=== PATIENT | male | born 1985 | race Caucasian/White ===

== ENCOUNTER 2016-04-25 23:35 | Observation (INO) | payer BC, SELFPAY ==
[~2016-04-25] VITALS: Ht 172.7 cm; Wt 94.9 kg
[2016-04-26 00:25] LABS: BASO # 0.1 K/mm3 (0.0-0.2); BASO % 1.3 % (0.0-1.0); EOS # 0.2 K/mm3 (0.0-0.50); EOS % 1.8 % (0.0-3.0); LARGE UNSTAINED CELL # 0.1 K/mm3 (0.0-0.4); LYMPH # 2.5 K/mm3 (1.5-4.5); LYMPH % 23.5 % (24.0-44.0); MEAN CORPUSCULAR HEMOGLOBIN 30.6 pg (27.0-33.0); MEAN CORPUSCULAR HGB CONC 33.9 g/dl (32.0-36.5); MEAN CORPUSCULAR VOLUME 90.3 fl (80.0-96.0); MONO # 0.5 K/mm3 (0.0-0.8); MONO % 4.4 % (0.0-5.0); NEUTROPHILS # 6.9 K/mm3 (1.8-7.7); PLATELET COUNT, AUTOMATED 196 k/mm3 (150-450); RED CELL DISTRIBUTION WIDTH 13.7 % (11.5-14.5); WHITE BLOOD COUNT 10.2 K/mm3 (4.0-10.0)
[2016-04-26 00:31] LABS: INR 0.93
[2016-04-26 00:51] LABS: ALBUMIN 3.7 GM/DL (3.2-5.2); ALBUMIN/GLOBULIN RATIO 1.09 (1.00-1.93); ALKALINE PHOSPHATASE 95 U/L (45-117); ALT/SGPT 37 U/L (12-78); AMYLASE 64 U/L (25-115); ANION GAP 10 MEQ/L (8-16); AST/SGOT 22 U/L (15-37); BILIRUBIN,DIRECT < 0.1 MG/DL (0.0-0.2); BILIRUBIN,TOTAL 0.2 MG/DL (0.2-1.0); BLOOD UREA NITROGEN 11 MG/DL (7-18); CALCIUM LEVEL 8.8 MG/DL (8.5-10.1); CARBON DIOXIDE LEVEL 27 MEQ/L (21-32); CHLORIDE LEVEL 104 MEQ/L (98-107); CREATININE FOR GFR 1.11 MG/DL (0.70-1.30); GLOMERULAR FILTRATION RATE > 60.0 (>60); GLUCOSE, FASTING 100 MG/DL (70-105); POTASSIUM SERUM 3.8 MEQ/L (3.5-5.1); SODIUM LEVEL 141 MEQ/L (136-145); TOTAL PROTEIN 7.1 GM/DL (6.4-8.2)
[2016-04-26] MEDS ORDERED: ISOVUE-370 76% 100ML VIAL (Q9967) As Ordered ONE (02:32)
--- NOTE | 2016-04-26 03:30 | REPUSA ---
CLINICAL HISTORY: Abdominal pain. TECHNIQUE: Multiple axial, sagittal and coronal CT images were obtained through the abdomen and pelvi s after administration of intravenous contrast material. COMMENTS: The liver is of uniform attenuation without mass or defect. There is no intra or extrahepatic biliary ductal dilatation. The spleen is normal. The gallbladder is surgically absent. The pancreas is of no rmal contour and attenuation characteristics. There is no evidence of adrenal mass. Both kidneys demonstrate prompt and equal nephrograms. The kidneys are normal in size, shape and conf iguration. There is no evidence of renal or ureteral mass. No renal or ureteral calculi are identifie d. There is no hydroureter or hydronephrosis. No evidence for appendicitis. There is no bowel wall thickening. No evidence for small or large laney l obstruction. There is no evidence of abdominal ascites or lymphadenopathy. Small sliding hiatal her janae. There is no evidence of intrinsic or extrinsic bladder mass. There is no pelvic ascites or lymphadeno madelin. Sigmoid diverticulosis. Thickening of the sigmoid colon. Images of the lung bases show no evidence of pleural or parenchymal mass. There are no pleural effusi ons. The bony structures are free of lytic or blastic lesions. Multilevel degenerative changes are seen in volving the thoracolumbar spine. Scattered calcifications are seen involving the aorta and major bran ches compatible with atherosclerosis. IMPRESSION: Thickened sigmoid, underdistention versus mild colitis. Prior cholecystectomy. Mild thickening of the bladder. Small sliding hiatal hernia. Thank you for your kind referral of this patient.
--- NOTE | 2016-04-26 04:24 | EDDOCDS ---
Nurse's Notes [facility] Name: Andrea Westfall Age: 31 yrs Sex: Male : 1985 Arrival Date: 04/25/2016 Time: 23:35 Bed 5 Private MD: CARRI NAQVI Diagnosis: Gastrointestinal hemorrhage, unspecified Presentation: 04/25 23:40 Presenting complaint: Patient states: "Chunks of blood coming out when I go to [place] [facility] [place]." Has been checked for same at [facility]. Took antibiotics but has not improved. Mucus and bloody BMs today. Adult Sepsis Screening: The patient does not have new or worsening altered mentation. Patient's respiratory rate is less than 22. Systolic blood pressure is greater than 100. Patient has a qSOFA score of 0- Negative Sepsis Screen. Suicide/Homicide risk assessment- the patient denies having any suicidal and/or homicidal ideations and does not present with any other emotional, behavioral or mental health complaints. Status: Patient is not a member service representative or dependent. Transition of care: patient was not received from another setting of care. 23:40 Acuity: SOL Level 3 [facility] 23:40 Method Of Arrival: [facility]in[facility] Triage Assessment: 23:44 General: Appears in no apparent distress, comfortable, Behavior is appropriate for age, kmg1 cooperative. Pain: Location: umbilical area and right lower quadrant Pain currently is 3 out of 10 on a pain scale. Quality of pain is described as burning, sharp. Pt Declines HIV testing. GI: Reports bloody stools lower abdominal pain, vomiting. Historical: - Allergies: No known drug Allergies; - Home Meds: 1. none - PMHx: polyps; - PSHx: Cholecystectomy; Colonoscopy; Endoscopy, Upper; - Social history: Smoking status: Patient uses tobacco products, light tobacco smoker. No barriers to communication noted, The patient speaks fluent Korean, Speaks appropriately for age. - Family history: Not pertinent. - : The pt / caregiver states he / she is not on anticoagulants. Home medication list is obtained from the patient. - Exposure Risk Screening:: None identified. Screenin/16 00:14 Screening information is obtained from the patient. Fall risk: No risks identified. af2 Assistance ADL's: requires no assistance with activities of daily living. Abuse/DV Screen: The patient / caregiver reports he/she is: not in a situation that causes fear, pain or injury. Nutritional screening: No deficits noted. Advance Directives: Currently, there is no health care proxy. home support is adequate. Assessment: 00:15 General: Appears in no apparent distress, comfortable, Behavior is appropriate for age, af2 cooperative. Neurological: Level of Consciousness is awake, alert, obeys commands, Oriented to person, place, time. Cardiovascular: Heart tones S1 S2 present. Respiratory: Airway is patent Respiratory effort is even, unlabored, Breath sounds are clear bilaterally. GI: Abdomen is obese, Bowel sounds present X 4 quads. Reports bloating, bloody stools lower abdominal pain, upper abd pain. 01:40 General: Appears in no apparent distress, comfortable, Behavior is appropriate for age, af2 cooperative. Neurological: Level of Consciousness is awake, alert, obeys commands, Oriented to person, place, time. Respiratory: Airway is patent Respiratory effort is even, unlabored. Derm: Skin is normal. 02:52 General: Appears in no apparent distress, Behavior is cooperative, pt taken down to CT, af2 tolerated procedure well. piv patent.. 04:16 General: Appears in no apparent distress, comfortable, Behavior is appropriate for age, af2 cooperative. Neurological: Level of Consciousness is awake, alert, obeys commands, Oriented to person, place, time. Cardiovascular:. Respiratory: Airway is patent Respiratory effort is even, unlabored. Derm: Skin is pink, warm & dry. Vital Signs: 04/25 23:37 BP 155 / 100; Pulse 78; Resp 18 S; Temp 97.7(O); Pulse Ox 100% on R/A; Weight 88.45 kg dd6 (R); Height 5 ft. 8 in. (172.72 cm) (R); Pain 3/10; 04/26 00:08 BP 140 / 99 Supine (auto/); Pulse 79; af2 00:08 BP 147 / 94 Sitting (auto/); Pulse 74; af2 00:09 Pulse Ox 98% ; af2 00:09 BP 136 / 92 Standing (auto/); Pulse 71; af2 04:19 BP 137 / 89; Pulse 57; Resp 18; Temp 97.8(TE); Pulse Ox 98% on R/A; Pain 3/10; arsen 04/25 23:37 Body Mass Index 29.65 (88.45 kg, 172.72 cm) dd6 Vitals: 04/25 23:37 Log In Time: April 25, 2016 at 23:35. dd6 ED Course: 23:36 Patient visited by Charlie Lamar PCA. dd6 23:36 Patient moved to Waiting dd6 23:37 CARRI NAQVI is Private Physician. dd6 23:37 Patient moved to Pre RCE dd6 23:42 Triage Initiated kmg1 23:54 Isabela Porter RN is Primary Nurse. kmg1 23:54 Tolu Colin DO is Attending Physician. cs11 23:54 Patient visited by Tolu Colin DO. cs11 23:54 Patient moved to [facility] 04/26 00:14 Lipase Sent. af2 00:14 Amylase Sent. af2 00:14 Liver Profile Sent. af2 00:14 Pt & Aptt Sent. af2 00:14 MED Profile Sent. af2 00:14 CBC with Diff Sent. af2 00:15 The patient / caregiver is instructed regarding the plan of care and ED course. Patient af2 has correct armband on for positive identification. 00:15 Inserted saline lock: 20 gauge in right antecubital area and blood collected. The af2 patient tolerated the procedure well. 00:16 Patient visited by Isabela Porter RN. af2 00:50 Patient visited by Isabela Porter RN. af2 01:14 Patient name changed from Andrea\\S\\\\S\\Queary\\S\\ to Andrea\\S\\Damián\\S\\Queary. EDMS 01:16 [facility] Payment Agreement was scanned into [employer] and attached to record. slh 01:26 Patient visited by Isabela Porter RN. af2 01:28 Patient visited by Isabela Porter RN. af2 01:41 Patient visited by Isabela Porter RN. af2 02:12 Patient visited by Isabela Porter RN. af2 02:12 Patient visited by Isabela Porter RN. af2 02:53 Patient visited by Isabela Porter RN. af2 03:29 Patient visited by Isabela Porter RN. af2 03:29 Patient visited by Isabela Porter RN. af2 03:40 Meg Esteban is Hospitalizing Provider. cs11 03:49 CT ABD & PELVIS: IV Contrast Only Returned. EDMS 04:16 No procedures done that require assistance. af2 04:17 Patient visited by Isabela Porter RN. af2 04:20 Patient visited by Deysi Goddard PCA. arsen Order Results: Lab Order: CBC with Diff; SPEC'M 04/26/16 00:12 Test: WHITE BLOOD COUNT; Value: 10.2; Range: 4.0-10.0; Abnormal: Above high normal; Units: K/mm3; Status: F Test: RED BLOOD COUNT; Value: 4.95; Range: 4.30-6.10; Units: M/mm3; Status: F Test: HEMOGLOBIN; Value: 15.2; Range: 14.0-18.0; Units: g/dl; Status: F Test: HEMATOCRIT; Value: 44.7; Range: 42.0-52.0; Units: %; Status: F Test: MEAN CORPUSCULAR VOLUME; Value: 90.3; Range: 80.0-96.0; Units: fl; Status: F Test: MEAN CORPUSCULAR HEMOGLOBIN; Value: 30.6; Range: 27.0-33.0; Units: pg; Status: F Test: MEAN CORPUSCULAR HGB CONC; Value: 33.9; Range: 32.0-36.5; Units: g/dl; Status: F Test: RED CELL DISTRIBUTION WIDTH; Value: 13.7; Range: 11.5-14.5; Units: %; Status: F Test: PLATELET COUNT, AUTOMATED; Value: 196; Range: 150-450; Units: k/mm3; Status: F Test: NEUTROPHILS %; Value: 68.0; Range: 36.0-66.0; Abnormal: Above high normal; Units: %; Status: F Test: LYMPH %; Value: 23.5; Range: 24.0-44.0; Abnormal: Below low normal; Units: %; Status: F Test: MONO %; Value: 4.4; Range: 0.0-5.0; Units: %; Status: F Test: EOS %; Value: 1.8; Range: 0.0-3.0; Units: %; Status: F Test: BASO %; Value: 1.3; Range: 0.0-1.0; Abnormal: Above high normal; Units: %; Status: F Test: LARGE UNSTAINED CELL %; Value: 1.0; Range: 0.0-4.0; Units: %; Status: F Test: NEUTROPHILS #; Value: 6.9; Range: 1.8-7.7; Units: K/mm3; Status: F Test: LYMPH #; Value: 2.5; Range: 1.5-4.5; Units: K/mm3; Status: F Test: MONO #; Value: 0.5; Range: 0.0-0.8; Units: K/mm3; Status: F Test: EOS #; Value: 0.2; Range: 0.0-0.50; Units: K/mm3; Status: F Test: BASO #; Value: 0.1; Range: 0.0-0.2; Units: K/mm3; Status: F Test: LARGE UNSTAINED CELL #; Value: 0.1; Range: 0.0-0.4; Units: K/mm3; Status: F Lab Order: MED Profile; SPEC'M 04/26/16 00:12 Test: GLUCOSE, FASTING; Value: 100; Range: 70-105; Units: MG/DL; Status: F Test: BLOOD UREA NITROGEN; Value: 11; Range: 7-18; Units: MG/DL; Status: F Test: CREATININE FOR GFR; Value: 1.11; Range: 0.70-1.30; Units: MG/DL; Status: F Test: GLOMERULAR FILTRATION RATE; Value: > 60.0; Range: >60; Status: F Test: SODIUM LEVEL; Value: 141; Range: 136-145; Units: MEQ/L; Status: F Test: POTASSIUM SERUM; Value: 3.8; Range: 3.5-5.1; Units: MEQ/L; Status: F Test: CHLORIDE LEVEL; Value: 104; Range: 98-107; Units: MEQ/L; Status: F Test: CARBON DIOXIDE LEVEL; Value: 27; Range: 21-32; Units: MEQ/L; Status: F Test: ANION GAP; Value: 10; Range: 8-16; Units: MEQ/L; Status: F Test: CALCIUM LEVEL; Value: 8.8; Range: 8.5-10.1; Units: MG/DL; Status: F Test Note: ; Units are mL/min/1.73 m2 Chronic Kidney Disease Staging per NKF: Stage I & II GFR >=60 Normal to Mildly Decreased Stage III GFR 30-59 Moderately Decreased Stage IV GFR 15-29 Severely Decreased Stage V GFR <15 Very Little GFR Left ESRD GFR <15 on VP [employer] Lab Order: Pt & Aptt; SPEC'M 04/26/16 00:12 Test: PROTHROMBIN TIME; Value: 12.6; Range: 12.3-14.5; Units: SECONDS; Status: F Test: INR; Value: 0.93; Status: F Test: PARTIAL THROMBOPLASTIN TIME; Value: 30.3; Range: 26.6-37.1; Units: SECONDS; Status: F Test Note: ; THERAPUTIC HUMAN INR VALUES INDICATIONS NORMAL RANGES PROPHYLAXIS/TREATMENT OF: VENOUS THROMBOSIS 2.0-3.0 PULMONARY EMBOLISM 2.0-3.0 PREVENTION OF SYSTEMIC EMBOLISM FROM: TISSUE HEART VALVES 2.0-3.0 ACUTE MYOCARDIAL INFARCTION 2.0-3.0 VALVULAR HEART DISEASE 2.0-3.0 ATRIAL FIBRILLATION 2.0-3.0 MECHANICAL VALVES(HIGH RISK) 2.5-3.5 RECURRENT MYOCARDIAL INFARCTION 2.5-3.5 Lab Order: Liver Profile; SPEC'04/26/16 00:12 Test: AST/SGOT; Value: 22; Range: 15-37; Units: U/L; Status: F Test: ALT/SGPT; Value: 37; Range: 12-78; Units: U/L; Status: F Test: ALKALINE PHOSPHATASE; Value: 95; Range: 45-117; Units: U/L; Status: F Test: BILIRUBIN,TOTAL; Value: 0.2; Range: 0.2-1.0; Units: MG/DL; Status: F Test: BILIRUBIN,DIRECT; Value: < 0.1; Range: 0.0-0.2; Units: MG/DL; Status: F Test: TOTAL PROTEIN; Value: 7.1; Range: 6.4-8.2; Units: GM/DL; Status: F Test: ALBUMIN; Value: 3.7; Range: 3.2-5.2; Units: GM/DL; Status: F Test: ALBUMIN/GLOBULIN RATIO; Value: 1.09; Range: 1.00-1.93; Status: F Lab Order: Amylase; SPEC'M 04/26/16 00:12 Test: AMYLASE; Value: 64; Range: 25-115; Units: U/L; Status: F Lab Order: Lipase; SPEC'M 04/26/16 00:12 Test: LIPASE; Value: 388; Range: 73-393; Units: U/L; Status: F Radiology Order: CT ABD & PELVIS: IV Contrast Only Test: CT ABD & PELVIS: IV Contrast Only REASON FOR EXAMINATION: Abdomen Pain; ; CLINICAL HISTORY: Abdominal pain.; TECHNIQUE: Multiple axial, sagittal and coronal CT images were obtained through the abdomen and pelvi; s after administration of intravenous contrast material.; COMMENTS:; The liver is of uniform attenuation without mass or defect. There is no intra or extrahepatic biliary; ductal dilatation. The spleen is normal. The gallbladder is surgically absent. The pancreas is of no; rmal contour and attenuation characteristics. There is no evidence of adrenal mass.; Both kidneys demonstrate prompt and equal nephrograms. The kidneys are normal in size, shape and conf; iguration. There is no evidence of renal or ureteral mass. No renal or ureteral calculi are identifie; d. There is no hydroureter or hydronephrosis.; No evidence for appendicitis. There is no bowel wall thickening. No evidence for small or large laney; l obstruction. There is no evidence of abdominal ascites or lymphadenopathy. Small sliding hiatal her; janae.; There is no evidence of intrinsic or extrinsic bladder mass. There is no pelvic ascites or lymphadeno; madelin. Sigmoid diverticulosis. Thickening of the sigmoid colon.; Images of the lung bases show no evidence of pleural or parenchymal mass. There are no pleural effusi; ons.; The bony structures are free of lytic or blastic lesions. Multilevel degenerative changes are seen in; volving the thoracolumbar spine. Scattered calcifications are seen involving the aorta and major bran; ches compatible with atherosclerosis.; IMPRESSION:; Thickened sigmoid, underdistention versus mild colitis.; Prior cholecystectomy.; Mild thickening of the bladder.; Small sliding hiatal hernia.; Thank you for your kind referral of this patient.; ; Outcome: 03:40 Decision to Hospitalize by Provider. cs11 04:16 Discharge Assessment: Patient awake, alert and oriented x 3. No cognitive and/or af2 functional deficits noted. Patient verbalized understanding of disposition instructions. patient administered narcotics - no. The following High Risk Discharge criteria are identified: None. Admitted to Med/Surg accompanied by tech, via wheelchair, with chart. Condition: stable. CT Study completed. Property :Personal belongings accompany Pt. 04:23 Patient left the ED. af2 Signatures: Dispatcher [employer] EDFrancisca Epps, RN RN kmg1 Charlie Lamar, PROFESSOR OF LAW PROFESSOR OF LAW dd6 Deysi Goddard, PROFESSOR OF LAW PROFESSOR OF LAW arsen Tolu Colin, DO cs11 Daria Guido Amber,RN RN af2 MTDD
--- NOTE | 2016-04-26 04:24 | EDDOCDS ---
Physician Documentation [facility] Name: Andrea Westfall Age: 31 yrs Sex: Male : 1985 Arrival Date: 04/25/2016 Time: 23:35 Bed 5 Private MD: CARRI NAQVI Disposition: 04/26/16 03:40 Hospitalization ordered by Meg Esteban for Inpatient Admission. Preliminary diagnosis is Gastrointestinal hemorrhage, unspecified. - Bed requested for 5 Salazar. - Status is Inpatient Admission. af2 - Condition is Stable. - Problem is an ongoing problem. - Symptoms are unchanged. Historical: - Allergies: No known drug Allergies; - Home Meds: 1. none - PMHx: polyps; - PSHx: Cholecystectomy; Colonoscopy; Endoscopy, Upper; - Social history: Smoking status: Patient uses tobacco products, light tobacco smoker. No barriers to communication noted, The patient speaks fluent Maltese, Speaks appropriately for age. - Family history: Not pertinent. - : The pt / caregiver states he / she is not on anticoagulants. Home medication list is obtained from the patient. - Exposure Risk Screening:: None identified. Vital Signs: 04/25 23:37 BP 155 / 100; Pulse 78; Resp 18 S; Temp 97.7(O); Pulse Ox 100% on R/A; Weight 88.45 kg dd6 / 195 lbs (R); Height 5 ft. 8 in. (172.72 cm) (R); Pain 3/10; 04/26 00:08 BP 140 / 99 Supine (auto/); Pulse 79; af2 00:08 BP 147 / 94 Sitting (auto/); Pulse 74; af2 00:09 Pulse Ox 98% ; af2 00:09 BP 136 / 92 Standing (auto/); Pulse 71; af2 04:19 BP 137 / 89; Pulse 57; Resp 18; Temp 97.8(TE); Pulse Ox 98% on R/A; Pain 3/10; arsen 04/25 23:37 Body Mass Index 29.65 (88.45 kg, 172.72 cm) dd6 MDM: 04/25 23:56 Orthostatic VS ordered. cs11 23:56 CBC with Diff Ordered. EDMS 23:56 MED Profile Ordered. EDMS 23:56 Pt & Aptt Ordered. EDMS 23:56 Liver Profile Ordered. EDMS 23:56 Amylase Ordered. EDMS 23:56 Lipase Ordered. EDMS 04/26 01:05 Financial registration complete. [facility] 01:[address] [facility] 01:16 [facility] Payment Agreement was scanned into [employer] and attached to record. [facility] 02:05 CT ABD & PELVIS: IV Contrast Only Ordered. EDMS 03:36 CBC with Diff Reviewed. cs11 03:36 MED Profile Reviewed. cs11 03:36 Pt & Aptt Reviewed. cs11 03:36 Liver Profile Reviewed. cs11 03:36 Amylase Reviewed. cs11 03:36 Lipase Reviewed. cs11 03:36 BED REQUEST+ADM ordered. EDMS 03:44 Admission / Observation Status ordered. EDMS 03:44 OTHER CUSTOM DIETS ordered. EDMS 03:44 HEMOGLOBIN & HEMATOCRIT Ordered. EDMS 03:44 HEMOGLOBIN & HEMATOCRIT Ordered. EDMS 03:44 HEMOGLOBIN & HEMATOCRIT Ordered. EDMS Signatures: Dispatcher [employer] EDMS Francisca Zamarripa RN RN kmg1 Radha , Brittany RN RN Tolu Sotelo, DO [facility] Daria Guido [facility] Isabela PorterRN RN af2 The chart was reviewed and I authenticate all verbal orders and agree with the evaluation and treatment provided.Attachments: 01:16 [facility] Payment Agreement [facility] MTDD
[2016-04-26 04:30] VITALS: BP 140/94
[2016-04-26] MEDS: PANTOPRAZOLE 40MG INJ (PROTONIX) (C9113) IV SCH ×2 (05:26→17:34)
[2016-04-26] MEDS: METOCLOPRAMIDE INJ 10MG/2ML VIAL (J2765) IV SCH ×3 (05:26→20:07)
[2016-04-26 06:00] VITALS: BP 134/90
--- NOTE | 2016-04-26 07:32 | IPNPDOC ---
Assessment/Plan Date Seen The patient was seen on 04/26/16. Problems Problems: (1) Abdominal pain Status: Acute Discussed With: Patient Problem Specific Plan: Consult Specialist, Monitor Clinically Problem Text: CT abd/pelvis unrevealing. Clear liquids for now. (2) Rectal bleeding Status: Acute Response to Treatment: Progressing Discussed With: Patient Problem Specific Plan: Consult Specialist, Monitor Clinically, Repeat Labs Problem Text: H/H stable. Some concern for IBD, lab work pending. Has had colonoscopies in the past, most recent 1 year ago. As per patient all studies have been unrevealing. GI consultation pending. Plan / VTE VTE Prophylaxis Ordered?: Yes Plan Diet: Continue Current Activity: Continue Current Diagnostics: Other Diagnostics Anticipated Discharge: Home Subjective Review of Systems CC/HPI The patient is a 31-year-old male admitted with a reason for visit of Rectal Bleeding. General: Denies: Chills, Fatigue, Malaise, Night Sweats, Normal Appetite, Other Symptoms, ROS Unobtainable Constitutional: Denies: Chills, Fatigue, Fever, Lethargy, Malaise, Night Sweats , Other, Weakness, Weight Loss Eyes: Denies: Conjunctivae inflammation, Eyelid inflammation, Other, Pain, Redness, Vision change ENT: Denies: Dysphagia, Ear Pain, Epistaxis, Head Aches, Other Symptoms, Post Nasal Drip, Sinus Congestion, Sore Throat Skin: Denies: Breakdown, Bruising, Dry, Itching, Jaundice, Lesions, Nail Changes, Other, Rash Pulmonary: Denies: Cough, Dyspnea, Other Symptoms, Pleuritic Chest Pain Cardiovascular: Denies: Chest Pain, Edema, Lt Headedness, Orthopnea, Other Symptoms, Palpitations, Paroxysmal Noc. Dyspnea Gastrointestinal: Reports: Abdominal Pain, Hematochezia, Nausea, Vomiting Genitourinary: Denies: Dysuria, Frequency, Hematuria, Incontinence, Other Symptoms, Retention Objective Physical Examination General Exam: Positive: Alert, Cooperative, No Acute Distress Eye Exam: Positive: Conjunctiva & lids normal, EOMI, Negative: Sclera icteric ENT Exam: Positive: Atraumatic, Mucous membr. moist/pink Neck Exam: Positive: Supple Chest Exam: Positive: Clear to auscultation, Normal air movement Heart Exam: Positive: Rate Normal, Regular Rhythm Abdomen Exam: Positive: Normal bowel sounds, Soft, Tenderness Extremity Exam: Negative: Edema Skin Exam: Negative: Rash Psych Exam: Positive: Mental status NL, Mood NL, Oriented x 3 Vital Signs/I&O Vital Signs Date Time Temp Pulse Resp B/P Pulse Ox O2 Delivery O2 Flow Rate FiO2 04/26/16 06:00 96.7 60 18 134/90 95 Room Air I&O- Last 24 Hours up to 6 AM 04/26/16 06:00 Intake Total 120 ml Output Total 0 ml Balance 120 ml Laboratory Data Labs 24H Laboratory Tests 2 04/26/16 00:12: Activated Partial Thromboplast Time 30.3, Aspartate Amino Transf (AST/SGOT) 22, Alanine Aminotransferase (ALT/SGPT) 37, Alkaline Phosphatase 95, Total Bilirubin 0.2, Direct Bilirubin < 0.1, Albumin 3.7, Albumin/Globulin Ratio 1.09 , Amylase Level 64, Anion Gap 10, White Blood Count 10.2H, Red Blood Count 4.95 , Hemoglobin 15.2, Hematocrit 44.7, Mean Corpuscular Volume 90.3, Mean Corpuscular Hemoglobin 30.6, Mean Corpuscular Hemoglobin Concent 33.9, Red Cell Distribution Width 13.7, Platelet Count 196, Neutrophils (%) (Auto) 68.0H, Lymphocytes (%) (Auto) 23.5L, Monocytes (%) (Auto) 4.4, Eosinophils (%) (Auto) 1.8, Basophils (%) (Auto) 1.3H, Neutrophils # (Auto) 6.9, Lymphocytes # (Auto) 2.5, Monocytes # (Auto) 0.5, Eosinophils # (Auto) 0.2, Basophils # (Auto) 0.1, Calcium Level 8.8, Glomerular Filtration Rate > 60.0, Large Unclassified Cells # 0.1, Large Unclassified Cells % 1.0, Lipase 388, Prothromb Time International Ratio 0.93, Prothrombin Time 12.6, Total Protein 7.1 04/26/16 06:00: CBC/BMP Laboratory Tests 04/26/16 00:12 Red Blood Count 4.95, Mean Corpuscular Volume 90.3, Mean Corpuscular Hemoglobin 30.6, Mean Corpuscular Hemoglobin Concent 33.9, Red Cell Distribution Width 13.7 , Neutrophils (%) (Auto) 68.0 H, Lymphocytes (%) (Auto) 23.5 L, Monocytes (%) ( Auto) 4.4, Eosinophils (%) (Auto) 1.8, Basophils (%) (Auto) 1.3 H, Neutrophils # (Auto) 6.9, Lymphocytes # (Auto) 2.5, Monocytes # (Auto) 0.5, Eosinophils # ( Auto) 0.2, Basophils # (Auto) 0.1 04/26/16 06:00 BING ALFRED MD Apr 26, 2016 07:32
[2016-04-26] MEDS ORDERED: PANTOPRAZOLE 40MG INJ (PROTONIX) (C9113) IV SCH (08:00)
[2016-04-26] MEDS: NICOTINE 14 MG/24 HR TRANSDERMAL TD SCH (13:37)
[2016-04-26 14:00] VITALS: BP 132/80
[2016-04-26] MEDS ORDERED: GOLYTELY SOLN 4000 ML BTL PO ONE (16:00)
--- NOTE | 2016-04-26 18:58 | HPE ---
DATE OF ADMISSION: 04/26/2016 PRIMARY CARE PROVIDER: None. CHIEF COMPLAINT: Bleeding per rectum. The patient stated that chunks of blood are coming out when I go to the bathroom. PAST MEDICAL HISTORY: Recurrent rectal bleeds for the past five years. 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 The patient has undergone about five colonoscopies which revealed some polyps. He has undergone also one endoscopy which did not reveal any abnormalities. All the tests were done in [place] where he used to work. He recently moved up to the [facility] [place] [facility] [place] and then about two weeks ago he started having abdominal pain, crampy, nausea and vomiting along with bleeding per rectum. For this he went to the [facility] Emergency Room where he was given a course of antibiotics and discharged from the emergency department. He finished the course of antibiotics; however his symptoms had subsided a little bit but then again recurred two days ago with restarting of the bleeding per rectum. He would pass chunks of blood several times a day when he goes to the bathroom; also 3-4 episodes of vomiting over the past two days. He has never required any blood transfusions. He denies any fever or chills. He denies any chest pain, shortness of breath, cough or phlegm. The patient had a CT scan done in the emergency room which showed mildly thickened sigmoid colon, which could be under distention versus mild colitis. There was mild thickening of the bladder, a small sliding hiatal hernia. There was no lymphadenopathy. The patient is admitted to the hospitalist service for gastrointestinal bleeding. PAST SURGICAL HISTORY: 1. Cholecystectomy. 2. Foot surgery. 3. Endoscopies. 4. Colonoscopies. HOME MEDICATIONS: None. ALLERGIES: None. SOCIAL HISTORY: Smokes about one-half of cigarettes per day and does not drink alcohol or use recreational drugs. FAMILY HISTORY: Brother has Crohn's disease. REVIEW OF SYSTEMS: All ten point review of systems is negative except those mentioned in the history of present illness (HPI). PHYSICAL EXAMINATION: VITAL SIGNS: Temperature 96.6, pulse 56, respirations 18, blood pressure 141/94, pulse oximetry 95% on room air. GENERAL: Patient is awake, alert, oriented times three. Laying down in bed in no acute distress. HEENT: Normocephalic atraumatic. Moist mucous membranes. Anicteric eyes. CHEST: Clear to auscultation. CARDIOVASCULAR: S1, S2, regular. ABDOMEN: Obese, soft, nontender. Bowel sounds present. EXTREMITIES: No edema. LABORATORY DATA: WBC 10.2, hemoglobin 15.2, platelets 196. Sodium 141, potassium 3.8, chloride 104, bicarbonate 27, BUN 11, creatinine 1.1. Glucose 100, calcium 8.8, liver function tests are normal, amylase and lipase normal. Coagulation profile is normal. ASSESSMENT AND PLAN: This is a 31-year-old male admitted for gastrointestinal (GI) bleeding. PLAN: The patient's hemoglobin and hematocrit remain stable. Will keep the patient on clear liquids. Will consult with gastroenterology to see if the patient would need a colonoscopy or endoscopy. The patient had his last colonoscopy about nine months ago in [place] and he had only one endoscopy which was about 4-5 years ago. Will continue to monitor hemoglobin and hematocrit. Will start the patient on pantoprazole twice a day. Will get a gastrointestinal panel and will also get inflammatory bowel disease (IBD) panel. Deep venous thrombosis (DVT) prophylaxis has been ordered. For nausea and vomiting will continue with the Reglan.
[2016-04-26 22:00] VITALS: BP 134/94
[2016-04-27] MEDS: PANTOPRAZOLE 40MG INJ (PROTONIX) (C9113) IV SCH (04:17)
[2016-04-27] MEDS: METOCLOPRAMIDE INJ 10MG/2ML VIAL (J2765) IV SCH ×2 (04:17→14:16)
[2016-04-27] MEDS ORDERED: GOLYTELY SOLN 4000 ML BTL PO ONE (05:00)
[2016-04-27 06:00] VITALS: BP 123/80
[2016-04-27 07:05] LABS: BASO % 0.5 % (0.0-1.0); EOS # 0.1 K/mm3 (0.0-0.50); EOS % 1.8 % (0.0-3.0); LARGE UNSTAINED CELL # 0.2 K/mm3 (0.0-0.4); LARGE UNSTAINED CELL % 2.5 % (0.0-4.0); LYMPH % 25.9 % (24.0-44.0); MEAN CORPUSCULAR HEMOGLOBIN 31.4 pg (27.0-33.0); MEAN CORPUSCULAR VOLUME 89.5 fl (80.0-96.0); MONO # 0.5 K/mm3 (0.0-0.8); MONO % 6.4 % (0.0-5.0); NEUTROPHILS # 4.9 K/mm3 (1.8-7.7); NEUTROPHILS % 62.8 % (36.0-66.0); PLATELET COUNT, AUTOMATED 179 k/mm3 (150-450); RED CELL DISTRIBUTION WIDTH 12.9 % (11.5-14.5); WHITE BLOOD COUNT 7.9 K/mm3 (4.0-10.0)
[2016-04-27 07:20] LABS: ANION GAP 7 MEQ/L (8-16); BLOOD UREA NITROGEN 11 MG/DL (7-18); CALCIUM LEVEL 8.6 MG/DL (8.5-10.1); CARBON DIOXIDE LEVEL 29 MEQ/L (21-32); CHLORIDE LEVEL 106 MEQ/L (98-107); CREATININE FOR GFR 0.83 MG/DL (0.70-1.30); GLOMERULAR FILTRATION RATE > 60.0 (>60); GLUCOSE, FASTING 90 MG/DL (70-105); POTASSIUM SERUM 3.8 MEQ/L (3.5-5.1); SODIUM LEVEL 142 MEQ/L (136-145)
[2016-04-27] MEDS: NICOTINE 14 MG/24 HR TRANSDERMAL TD SCH (09:32)
--- NOTE | 2016-04-27 12:20 | ROOR ---
Patient Name: Andrea Westfall Procedure Date: 04/27/2016 12:03 PM Date of : 1985 Age: 31 Room: [facility] Gender: Male Note Status: Finalized Procedure: Upper GI endoscopy Indications: Heartburn, Nausea with vomiting Providers: Joe MCCURDY MD Referring MD: 2. Inpatient 2. Inpatient Requesting Provider: Medicines: Monitored Anesthesia Care Complications: No immediate complications. Procedure: Pre-Anesthesia Assessment: - The heart rate, respiratory rate, oxygen saturations, blood pressure, adequacy of pulmonary ventilation, and response to care were monitored throughout the procedure. The Endoscope was introduced through the mouth, and advanced to the second part of duodenum. The upper GI endoscopy was accomplished without difficulty. The patient tolerated the procedure well. Findings: Very small (insignificant) Hiatal Hernia. The esophagus was normal. The stomach was normal. The examined duodenum was normal. Impression: - Very small (insignificant) Hiatal Hernia. - Normal esophagus. - Normal stomach. - Normal examined duodenum. - No specimens collected. Recommendation: - Observe patient's clinical course. - Return to referring physician at appointment to be scheduled. - Return to my office PRN. Joe Mccurdy MD Joe MCCURDY MD 04/27/2016 12:19:56 PM This report has been signed electronically. Number of Addenda: 0 Note Initiated On: 04/27/2016 12:03 PM Estimated Blood Loss: Estimated blood loss: none.
[2016-04-27] MEDS ORDERED: LIDOCAINE 2% INJ 100 MG/5 ML SDV (FOR ANES.) As Ordered ONE (12:23)
[2016-04-27] MEDS ORDERED: PROPOFOL 200 MG/20 ML VIAL As Ordered ONE (12:23)
--- NOTE | 2016-04-27 12:35 | ROOR ---
Patient Name: Andrea Westfall Procedure Date: 04/27/2016 12:02 PM Date of : 1985 Age: 31 Room: [facility] Gender: Male Note Status: Finalized Procedure: Colonoscopy Indications: Hematochezia, Suspected irritable bowel syndrome, Diarrhea Providers: Joe MCCURDY MD Referring MD: 2. Inpatient 2. Inpatient Requesting Provider: Medicines: Monitored Anesthesia Care Complications: No immediate complications. Procedure: Pre-Anesthesia Assessment: - The heart rate, respiratory rate, oxygen saturations, blood pressure, adequacy of pulmonary ventilation, and response to care were monitored throughout the procedure. The Colonoscope was introduced through the anus and advanced to 9 cm into the ileum. The colonoscopy was performed without difficulty. The patient tolerated the procedure well. The quality of the bowel preparation was good. Findings: The perianal and digital rectal examinations were normal. The colon (entire examined portion) appeared normal. The terminal ileum appeared normal. Small Internal Hemorrhoids. (Exam: Complete, Prep: Good or Excellent.) Impression: - (Exam: Complete, Prep: Good or Excellent.) - The entire examined colon is normal. - The examined portion of the ileum was normal. - Small Internal Hemorrhoids. - No specimens collected. - Irritable bowel syndrome suspected. Recommendation: - Use Bentyl (dicyclomine) 20 mg every 6-8 hrs as needed for abdominal pain/diarrhea/bloating. - Use Zofran (ondansetron) 4 mg every 8 hrs as needed for nausea - Return to referring physician. - Return to my office PRN. - Pt does not need a follow up visit with me. can follow up PRN - Advance diet as tolerated - advance as tolerated to advance diet as tolerated. Joe Mccurdy MD Joe MCCURDY MD 04/27/2016 12:35:09 PM This report has been signed electronically. Number of Addenda: 0 Note Initiated On: 04/27/2016 12:02 PM Estimated Blood Loss: Estimated blood loss: none.
[2016-04-27 13:21] VITALS: BP 132/88
[2016-04-27] MEDS ORDERED: DICYCLOMINE 10 MG CAP PO PRN (13:30)
[2016-04-27] MEDS ORDERED: ONDANSETRON 4 MG TAB (S0181) PO PRN (13:30)
[2016-04-27 14:00] VITALS: BP 134/84
[2016-04-27] MEDS ORDERED: BENT20TA PO (14:57)
[2016-04-27] MEDS ORDERED: ZOFR20TA PO (14:57)
--- NOTE | 2016-04-28 05:24 | EDDOCDS ---
Physician Documentation [facility] Name: Andrea Westfall Age: 31 yrs Sex: Male : 1985 Arrival Date: 04/25/2016 Time: 23:35 Bed 5 Private MD: CARRI NAQVI Disposition: 04/26/16 03:40 Hospitalization ordered by Meg Esteban for Inpatient Admission. Preliminary diagnosis is Gastrointestinal hemorrhage, unspecified. - Bed requested for 5 Salazar. - Status is Inpatient Admission. af2 - Condition is Stable. - Problem is an ongoing problem. - Symptoms are unchanged. Historical: - Allergies: No known drug Allergies; - Home Meds: 1. none - PMHx: polyps; - PSHx: Cholecystectomy; Colonoscopy; Endoscopy, Upper; - Social history: Smoking status: Patient uses tobacco products, light tobacco smoker. No barriers to communication noted, The patient speaks fluent Kiswahili, Speaks appropriately for age. - Family history: Not pertinent. - : The pt / caregiver states he / she is not on anticoagulants. Home medication list is obtained from the patient. - Exposure Risk Screening:: None identified. Vital Signs: 04/25 23:37 BP 155 / 100; Pulse 78; Resp 18 S; Temp 97.7(O); Pulse Ox 100% on R/A; Weight 88.45 kg dd6 / 195 lbs (R); Height 5 ft. 8 in. (172.72 cm) (R); Pain 3/10; 04/26 00:08 BP 140 / 99 Supine (auto/); Pulse 79; af2 00:08 BP 147 / 94 Sitting (auto/); Pulse 74; af2 00:09 Pulse Ox 98% ; af2 00:09 BP 136 / 92 Standing (auto/); Pulse 71; af2 04:19 BP 137 / 89; Pulse 57; Resp 18; Temp 97.8(TE); Pulse Ox 98% on R/A; Pain 3/10; arsen 04/25 23:37 Body Mass Index 29.65 (88.45 kg, 172.72 cm) dd6 MDM: 04/25 23:56 Orthostatic VS ordered. cs11 23:56 CBC with Diff Ordered. EDMS 23:56 MED Profile Ordered. EDMS 23:56 Pt & Aptt Ordered. EDMS 23:56 Liver Profile Ordered. EDMS 23:56 Amylase Ordered. EDMS 23:56 Lipase Ordered. EDIL 04/26 01:05 Financial registration complete. [facility] 01:06 Orthostatic VS ordered. [facility] :16 [facility] Payment Agreement was scanned into [employer] and attached to record. [facility] 02:05 CT ABD & PELVIS: IV Contrast Only Ordered. EDMS 03:36 CBC with Diff Reviewed. cs11 03:36 MED Profile Reviewed. cs11 03:36 Pt & Aptt Reviewed. cs11 03:36 Liver Profile Reviewed. cs11 03:36 Amylase Reviewed. cs11 03:36 Lipase Reviewed. cs11 03:36 BED REQUEST+ADM ordered. EDMS 03:44 Admission / Observation Status ordered. EDMS 03:44 OTHER CUSTOM DIETS ordered. EDMS 03:44 HEMOGLOBIN & HEMATOCRIT Ordered. EDMS 03:44 HEMOGLOBIN & HEMATOCRIT Ordered. EDMS 03:44 HEMOGLOBIN & HEMATOCRIT Ordered. EDIL 12:01 T-Sheet-- Draft Copy was scanned into [employer] and attached to record. gb Signatures: Dispatcher [employer] EDIL Francisca Zamarripa, RN RN kmg1 Radha GREER, Brittany RN RN daq Ashanti Hearn, Reg Reg gb Tolu Colin, DO DO cs11 Daria Guido [facility] Isabela Porter,RN RN af2 The chart was reviewed and I authenticate all verbal orders and agree with the evaluation and treatment provided.Attachments: : [facility] Payment Agreement [facility] 12: T-Sheet-- Draft Copy gb Chart Complete MTDD
--- NOTE | 2016-04-28 05:24 | EDDOCDS ---
Nurse's Notes [facility] Name: Andrea Westfall Age: 31 yrs Sex: Male : 1985 Arrival Date: 04/25/2016 Time: 23:35 Bed 5 Private MD: CARRI NAQVI Diagnosis: Gastrointestinal hemorrhage, unspecified Presentation: 04/25 23:40 Presenting complaint: Patient states: "Chunks of blood coming out when I go to the [facility] bathroom." Has been checked for same at [facility]. Took antibiotics but has not improved. Mucus and bloody BMs today. Adult Sepsis Screening: The patient does not have new or worsening altered mentation. Patient's respiratory rate is less than 22. Systolic blood pressure is greater than 100. Patient has a qSOFA score of 0- Negative Sepsis Screen. Suicide/Homicide risk assessment- the patient denies having any suicidal and/or homicidal ideations and does not present with any other emotional, behavioral or mental health complaints. 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 Transition of care: patient was not received from another setting of care. 23:40 Acuity: SOL Level 3 [facility] 23:40 Method Of Arrival: Walkin/Carried/Asstd [facility] Triage Assessment: 23:44 General: Appears in no apparent distress, comfortable, Behavior is appropriate for age, kmg1 cooperative. Pain: Location: umbilical area and right lower quadrant Pain currently is 3 out of 10 on a pain scale. Quality of pain is described as burning, sharp. Pt Declines HIV testing. GI: Reports bloody stools lower abdominal pain, vomiting. Historical: - Allergies: No known drug Allergies; - Home Meds: 1. none - PMHx: polyps; - PSHx: Cholecystectomy; Colonoscopy; Endoscopy, Upper; - Social history: Smoking status: Patient uses tobacco products, light tobacco smoker. No barriers to communication noted, The patient speaks fluent Hebrew, Speaks appropriately for age. - Family history: Not pertinent. - : The pt / caregiver states he / she is not on anticoagulants. Home medication list is obtained from the patient. - Exposure Risk Screening:: None identified. Screenin/16 00:14 Screening information is obtained from the patient. Fall risk: No risks identified. af2 Assistance ADL's: requires no assistance with activities of daily living. Abuse/DV Screen: The patient / caregiver reports he/she is: not in a situation that causes fear, pain or injury. Nutritional screening: No deficits noted. Advance Directives: Currently, there is no health care proxy. home support is adequate. Assessment: 00:15 General: Appears in no apparent distress, comfortable, Behavior is appropriate for age, af2 cooperative. Neurological: Level of Consciousness is awake, alert, obeys commands, Oriented to person, place, time. Cardiovascular: Heart tones S1 S2 present. Respiratory: Airway is patent Respiratory effort is even, unlabored, Breath sounds are clear bilaterally. GI: Abdomen is obese, Bowel sounds present X 4 quads. Reports bloating, bloody stools lower abdominal pain, upper abd pain. 01:40 General: Appears in no apparent distress, comfortable, Behavior is appropriate for age, af2 cooperative. Neurological: Level of Consciousness is awake, alert, obeys commands, Oriented to person, place, time. Respiratory: Airway is patent Respiratory effort is even, unlabored. Derm: Skin is normal. 02:52 General: Appears in no apparent distress, Behavior is cooperative, pt taken down to CT, af2 tolerated procedure well. piv patent.. 04:16 General: Appears in no apparent distress, comfortable, Behavior is appropriate for age, af2 cooperative. Neurological: Level of Consciousness is awake, alert, obeys commands, Oriented to person, place, time. Cardiovascular:. Respiratory: Airway is patent Respiratory effort is even, unlabored. Derm: Skin is pink, warm & dry. Vital Signs: 04/25 23:37 BP 155 / 100; Pulse 78; Resp 18 S; Temp 97.7(O); Pulse Ox 100% on R/A; Weight 88.45 kg dd6 (R); Height 5 ft. 8 in. (172.72 cm) (R); Pain 3/10; 04/26 00:08 BP 140 / 99 Supine (auto/); Pulse 79; af2 00:08 BP 147 / 94 Sitting (auto/); Pulse 74; af2 00:09 Pulse Ox 98% ; af2 00:09 BP 136 / 92 Standing (auto/); Pulse 71; af2 04:19 BP 137 / 89; Pulse 57; Resp 18; Temp 97.8(TE); Pulse Ox 98% on R/A; Pain 3/10; arsen 04/25 23:37 Body Mass Index 29.65 (88.45 kg, 172.72 cm) dd6 Vitals: 04/25 23:37 Log In Time: April 25, 2016 at 23:35. dd6 ED Course: 23:36 Patient visited by Charlie Lamar PCA. dd6 23:36 Patient moved to Waiting dd6 23:37 CARRI NAQVI is Private Physician. dd6 23:37 Patient moved to Pre RCE dd6 23:42 Triage Initiated kmg1 23:54 Isabela Porter RN is Primary Nurse. kmg1 23:54 Tolu Colin DO is Attending Physician. cs11 23:54 Patient visited by Tolu Colin DO. cs11 23:54 Patient moved to [facility] 04/26 00:14 Lipase Sent. af2 00:14 Amylase Sent. af2 00:14 Liver Profile Sent. af2 00:14 Pt & Aptt Sent. af2 00:14 MED Profile Sent. af2 00:14 CBC with Diff Sent. af2 00:15 The patient / caregiver is instructed regarding the plan of care and ED course. Patient af2 has correct armband on for positive identification. 00:15 Inserted saline lock: 20 gauge in right antecubital area and blood collected. The af2 patient tolerated the procedure well. 00:16 Patient visited by Isabela Porter RN. af2 00:50 Patient visited by Isabela Porter RN. af2 01:14 Patient name changed from Andrea\\S\\\\S\\Queary\\S\\ to Andrea\\S\\Damián\\S\\Queary. EDMS 01:16 [facility] Payment Agreement was scanned into Te[employer] and attached to record. slh 01:26 Patient visited by Isabela Porter RN. af2 01:28 Patient visited by Isabela Porter RN. af2 01:41 Patient visited by Isabela Porter RN. af2 02:12 Patient visited by Isabela Porter RN. af2 02:12 Patient visited by Isabela Porter RN. af2 02:53 Patient visited by Isabela Porter RN. af2 03:29 Patient visited by Isabela Porter RN. af2 03:29 Patient visited by Isabela Porter RN. af2 03:40 Meg Esteban is Hospitalizing Provider. cs11 03:49 CT ABD & PELVIS: IV Contrast Only Returned. EDMS 04:16 No procedures done that require assistance. af2 04:17 Patient visited by Isabela Porter RN. af2 04:20 Patient visited by Deysi Goddard PCA. arsen 12:01 T-Sheet-- Draft Copy was scanned into [employer] and attached to record. gb Order Results: Lab Order: CBC with Diff; SPEC'M 04/26/16 00:12 Test: WHITE BLOOD COUNT; Value: 10.2; Range: 4.0-10.0; Abnormal: Above high normal; Units: K/mm3; Status: F Test: RED BLOOD COUNT; Value: 4.95; Range: 4.30-6.10; Units: M/mm3; Status: F Test: HEMOGLOBIN; Value: 15.2; Range: 14.0-18.0; Units: g/dl; Status: F Test: HEMATOCRIT; Value: 44.7; Range: 42.0-52.0; Units: %; Status: F Test: MEAN CORPUSCULAR VOLUME; Value: 90.3; Range: 80.0-96.0; Units: fl; Status: F Test: MEAN CORPUSCULAR HEMOGLOBIN; Value: 30.6; Range: 27.0-33.0; Units: pg; Status: F Test: MEAN CORPUSCULAR HGB CONC; Value: 33.9; Range: 32.0-36.5; Units: g/dl; Status: F Test: RED CELL DISTRIBUTION WIDTH; Value: 13.7; Range: 11.5-14.5; Units: %; Status: F Test: PLATELET COUNT, AUTOMATED; Value: 196; Range: 150-450; Units: k/mm3; Status: F Test: NEUTROPHILS %; Value: 68.0; Range: 36.0-66.0; Abnormal: Above high normal; Units: %; Status: F Test: LYMPH %; Value: 23.5; Range: 24.0-44.0; Abnormal: Below low normal; Units: %; Status: F Test: MONO %; Value: 4.4; Range: 0.0-5.0; Units: %; Status: F Test: EOS %; Value: 1.8; Range: 0.0-3.0; Units: %; Status: F Test: BASO %; Value: 1.3; Range: 0.0-1.0; Abnormal: Above high normal; Units: %; Status: F Test: LARGE UNSTAINED CELL %; Value: 1.0; Range: 0.0-4.0; Units: %; Status: F Test: NEUTROPHILS #; Value: 6.9; Range: 1.8-7.7; Units: K/mm3; Status: F Test: LYMPH #; Value: 2.5; Range: 1.5-4.5; Units: K/mm3; Status: F Test: MONO #; Value: 0.5; Range: 0.0-0.8; Units: K/mm3; Status: F Test: EOS #; Value: 0.2; Range: 0.0-0.50; Units: K/mm3; Status: F Test: BASO #; Value: 0.1; Range: 0.0-0.2; Units: K/mm3; Status: F Test: LARGE UNSTAINED CELL #; Value: 0.1; Range: 0.0-0.4; Units: K/mm3; Status: F Lab Order: MED Profile; [facility]' 04/26/16 00:12 Test: GLUCOSE, FASTING; Value: 100; Range: 70-105; Units: MG/DL; Status: F Test: BLOOD UREA NITROGEN; Value: 11; Range: 7-18; Units: MG/DL; Status: F Test: CREATININE FOR GFR; Value: 1.11; Range: 0.70-1.30; Units: MG/DL; Status: F Test: GLOMERULAR FILTRATION RATE; Value: > 60.0; Range: >60; Status: F Test: SODIUM LEVEL; Value: 141; Range: 136-145; Units: MEQ/L; Status: F Test: POTASSIUM SERUM; Value: 3.8; Range: 3.5-5.1; Units: MEQ/L; Status: F Test: CHLORIDE LEVEL; Value: 104; Range: 98-107; Units: MEQ/L; Status: F Test: CARBON DIOXIDE LEVEL; Value: 27; Range: 21-32; Units: MEQ/L; Status: F Test: ANION GAP; Value: 10; Range: 8-16; Units: MEQ/L; Status: F Test: CALCIUM LEVEL; Value: 8.8; Range: 8.5-10.1; Units: MG/DL; Status: F Test Note: ; Units are mL/min/1.73 m2 Chronic Kidney Disease Staging per NKF: Stage I & II GFR >=60 Normal to Mildly Decreased Stage III GFR 30-59 Moderately Decreased Stage IV GFR 15-29 Severely Decreased Stage V GFR <15 Very Little GFR Left ESRD GFR <15 on PROBATE CLERK Lab Order: Pt & Aptt; SPEC'M 04/26/16 00:12 Test: PROTHROMBIN TIME; Value: 12.6; Range: 12.3-14.5; Units: SECONDS; Status: F Test: INR; Value: 0.93; Status: F Test: PARTIAL THROMBOPLASTIN TIME; Value: 30.3; Range: 26.6-37.1; Units: SECONDS; Status: F Test Note: ; THERAPUTIC HUMAN INR VALUES INDICATIONS NORMAL RANGES PROPHYLAXIS/TREATMENT OF: VENOUS THROMBOSIS 2.0-3.0 PULMONARY EMBOLISM 2.0-3.0 PREVENTION OF SYSTEMIC EMBOLISM FROM: TISSUE HEART VALVES 2.0-3.0 ACUTE MYOCARDIAL INFARCTION 2.0-3.0 VALVULAR HEART DISEASE 2.0-3.0 ATRIAL FIBRILLATION 2.0-3.0 MECHANICAL VALVES(HIGH RISK) 2.5-3.5 RECURRENT MYOCARDIAL INFARCTION 2.5-3.5 Lab Order: Liver Profile; SPEC' 04/26/16 00:12 Test: AST/SGOT; Value: 22; Range: 15-37; Units: U/L; Status: F Test: ALT/SGPT; Value: 37; Range: 12-78; Units: U/L; Status: F Test: ALKALINE PHOSPHATASE; Value: 95; Range: 45-117; Units: U/L; Status: F Test: BILIRUBIN,TOTAL; Value: 0.2; Range: 0.2-1.0; Units: MG/DL; Status: F Test: BILIRUBIN,DIRECT; Value: < 0.1; Range: 0.0-0.2; Units: MG/DL; Status: F Test: TOTAL PROTEIN; Value: 7.1; Range: 6.4-8.2; Units: GM/DL; Status: F Test: ALBUMIN; Value: 3.7; Range: 3.2-5.2; Units: GM/DL; Status: F Test: ALBUMIN/GLOBULIN RATIO; Value: 1.09; Range: 1.00-1.93; Status: F Lab Order: Amylase; SPEC'M 04/26/16 00:12 Test: AMYLASE; Value: 64; Range: 25-115; Units: U/L; Status: F Lab Order: Lipase; SPEC'M 04/26/16 00:12 Test: LIPASE; Value: 388; Range: 73-393; Units: U/L; Status: F Radiology Order: CT ABD & PELVIS: IV Contrast Only Test: CT ABD & PELVIS: IV Contrast Only REASON FOR EXAMINATION: Abdomen Pain; ; CLINICAL HISTORY: Abdominal pain.; TECHNIQUE: Multiple axial, sagittal and coronal CT images were obtained through the abdomen and pelvi; s after administration of intravenous contrast material.; COMMENTS:; The liver is of uniform attenuation without mass or defect. There is no intra or extrahepatic biliary; ductal dilatation. The spleen is normal. The gallbladder is surgically absent. The pancreas is of no; rmal contour and attenuation characteristics. There is no evidence of adrenal mass.; Both kidneys demonstrate prompt and equal nephrograms. The kidneys are normal in size, shape and conf; iguration. There is no evidence of renal or ureteral mass. No renal or ureteral calculi are identifie; d. There is no hydroureter or hydronephrosis.; No evidence for appendicitis. There is no bowel wall thickening. No evidence for small or large laney; l obstruction. There is no evidence of abdominal ascites or lymphadenopathy. Small sliding hiatal her; janae.; There is no evidence of intrinsic or extrinsic bladder mass. There is no pelvic ascites or lymphadeno; madelin. Sigmoid diverticulosis. Thickening of the sigmoid colon.; Images of the lung bases show no evidence of pleural or parenchymal mass. There are no pleural effusi; ons.; The bony structures are free of lytic or blastic lesions. Multilevel degenerative changes are seen in; volving the thoracolumbar spine. Scattered calcifications are seen involving the aorta and major bran; ches compatible with atherosclerosis.; IMPRESSION:; Thickened sigmoid, underdistention versus mild colitis.; Prior cholecystectomy.; Mild thickening of the bladder.; Small sliding hiatal hernia.; Thank you for your kind referral of this patient.; ; Outcome: 03:40 Decision to Hospitalize by Provider. cs11 04:16 Discharge Assessment: Patient awake, alert and oriented x 3. No cognitive and/or af2 functional deficits noted. Patient verbalized understanding of disposition instructions. patient administered narcotics - no. The following High Risk Discharge criteria are identified: None. Admitted to Med/Surg accompanied by tech, via wheelchair, with chart. Condition: stable. CT Study completed. Property :Personal belongings accompany Pt. 04:23 Patient left the ED. af2 Signatures: Dispatcher [employer] EDMS Francisca Zamarripa, RN RN kmg1 Ashanti Hearn, Reg Reg gb Charlie Lamar, BATON TWIRLER BATON TWIRLER dd6 Deysi Goddard, BATON TWIRLER BATON TWIRLER arsen Tolu Colin, DO DO cs11 Daria Guido Amber,RN RN af2 Chart Complete [facility]
--- NOTE | 2016-04-28 05:24 | EDDOCDS ---
Physician Documentation [facility] Name: Andrea Westfall Age: 31 yrs Sex: Male : 1985 Arrival Date: 04/25/2016 Time: 23:35 Bed 5 Private MD: CARRI NAQVI Disposition: 04/26/16 03:40 Hospitalization ordered by Meg Esteban for Inpatient Admission. Preliminary diagnosis is Gastrointestinal hemorrhage, unspecified. - Bed requested for 5 Salazar. - Status is Inpatient Admission. af2 - Condition is Stable. - Problem is an ongoing problem. - Symptoms are unchanged. Historical: - Allergies: No known drug Allergies; - Home Meds: 1. none - PMHx: polyps; - PSHx: Cholecystectomy; Colonoscopy; Endoscopy, Upper; - Social history: Smoking status: Patient uses tobacco products, light tobacco smoker. No barriers to communication noted, The patient speaks fluent Swedish, Speaks appropriately for age. - Family history: Not pertinent. - : The pt / caregiver states he / she is not on anticoagulants. Home medication list is obtained from the patient. - Exposure Risk Screening:: None identified. Vital Signs: 04/25 23:37 BP 155 / 100; Pulse 78; Resp 18 S; Temp 97.7(O); Pulse Ox 100% on R/A; Weight 88.45 kg dd6 / 195 lbs (R); Height 5 ft. 8 in. (172.72 cm) (R); Pain 3/10; 04/26 00:08 BP 140 / 99 Supine (auto/); Pulse 79; af2 00:08 BP 147 / 94 Sitting (auto/); Pulse 74; af2 00:09 Pulse Ox 98% ; af2 00:09 BP 136 / 92 Standing (auto/); Pulse 71; af2 04:19 BP 137 / 89; Pulse 57; Resp 18; Temp 97.8(TE); Pulse Ox 98% on R/A; Pain 3/10; arsen 04/25 23:37 Body Mass Index 29.65 (88.45 kg, 172.72 cm) dd6 MDM: 04/25 23:56 Orthostatic VS ordered. cs11 23:56 CBC with Diff Ordered. EDMS 23:56 MED Profile Ordered. EDMS 23:56 Pt & Aptt Ordered. EDMS 23:56 Liver Profile Ordered. EDMS 23:56 Amylase Ordered. EDMS 23:56 Lipase Ordered. EDOR 04/26 01:05 Financial registration complete. [facility] 01:06 Orthostatic VS ordered. [facility] :16 [facility] Payment Agreement was scanned into [employer] and attached to record. [facility] 02:05 CT ABD & PELVIS: IV Contrast Only Ordered. EDMS 03:36 CBC with Diff Reviewed. cs11 03:36 MED Profile Reviewed. cs11 03:36 Pt & Aptt Reviewed. cs11 03:36 Liver Profile Reviewed. cs11 03:36 Amylase Reviewed. cs11 03:36 Lipase Reviewed. cs11 03:36 BED REQUEST+ADM ordered. EDMS 03:44 Admission / Observation Status ordered. EDMS 03:44 OTHER CUSTOM DIETS ordered. EDMS 03:44 HEMOGLOBIN & HEMATOCRIT Ordered. EDMS 03:44 HEMOGLOBIN & HEMATOCRIT Ordered. EDMS 03:44 HEMOGLOBIN & HEMATOCRIT Ordered. EDOR 12:01 T-Sheet-- Draft Copy was scanned into [employer] and attached to record. gb Signatures: Dispatcher [employer] EDOR Francisca Zamarripa, RN RN [id number] Radha GREER, Brittany RN RN daq Ashanti Hearn, Reg Reg gb Tolu Colin, DO DO cs11 Daria Guido [facility] Isabela Porter,RN RN af2 The chart was reviewed and I authenticate all verbal orders and agree with the evaluation and treatment provided.Attachments: : [facility] Payment Agreement [facility] 12: T-Sheet-- Draft Copy gb Chart Complete MTDD
--- NOTE | 2016-04-28 21:38 | DSES ---
DATE OF ADMISSION: 04/26/2016 DATE OF DISCHARGE: 04/27/2016 PRIMARY CARE PROVIDER: [facility] ([place] in [place]. PROCEDURES: Colonoscopy. COMPLICATIONS: None. ADMISSION/DISCHARGE DIAGNOSES: 1. Abdominal pain. 2. Rectal bleeding. HOSPITALIZATION: Patient is a 31-year-old male with a history of intermittent blood per rectum who came to [facility] on 04/26/2016 for acute episode of gastrointestinal (GI) bleeding. Patient was admitted to medical/surgical floor, and patient's hemoglobin and hematocrit were monitored continuously. Dr. Mccurdy is contacted, and patient's colonoscopy was scheduled on 04/27/2016. Workup for inflammatory bowel disease was also ordered. Patient tolerated the colonoscopy well without any complications, and since admission the patient does not have any recurrence of the GI bleed. Patient's multiple sets of hemoglobin and hematocrit were obtained, and patient's hemoglobin was maintained always around 15. The preliminary report for the colonoscopy showed the patient has mild hiatal hernia. No significant source that would contribute to a GI bleed. There was no active bleeding noted during the scope, and patient was determined to be medially stable for discharge. Patient recommended to followup with primary care provider ([facility]) in [place]. VITAL SIGNS: Temperature is 97, pulse is 75, respirations 16, blood pressure is 134/84, pulse oximetry 96% in room air. LABORATORY DATA: WBC 7.9, hemoglobin 14.7, hematocrit 41.9, platelet count is 179. Sodium 142, potassium 3.8, chloride is 106, carbon dioxide 29, BUN 11, creatinine 0.83, GFR greater than 60, fasting glucose 90, calcium 8.6. PT is 0.6, INR 0.93. Inflammatory bowel disease workup is pending. CT of abdomen and pelvis shows mild thickening of the bladder. Thickened sigmoid. Small sliding hiatal hernia. DISCHARGE MEDICATIONS: - Bentyl 20 mg by mouth four times a day as needed, 20 pills dispensed. - Zofran 4 mg by mouth every 8 hours as needed for nausea and vomiting. DISCHARGE INSTRUCTIONS: Discontinue line. Discharge home. Activity as tolerated. Diet as tolerated. Patient should followup with primary care provider at the [facility] after the discharge. DISCHARGE CONDITION: Stable. DISCHARGE TIME: Greater than 30 minutes.
== END 2016-04-27 16:40 | disposition home or self-care (01) ==
LOC: M ED 23:35 → M ED INP 04-26 03:39 → M MS5PR 04-26 04:30
PROVIDERS: ADMIT Internal Medicine Nephrology; ATTEND Internal Medicine
DX: K62.5 Hemorrhage of anus and rectum (principal); K58.8 Other irritable bowel syndrome; F17.210 Nicotine dependence, cigarettes, uncomplicated
CPT/HCPCS: 36415; 43235; 45378; 74177; 80048; 80076; 82150; 83516; 83690; 85014; 85018; 85025; 85610; 85730; 96374; 96375; 96376; 99285; C9113; J2765; Q9967